=== PATIENT | female | born 1995 | race Caucasian/White ===

== ENCOUNTER 2019-06-19 16:24 | Observation (INO) ==
[2019-06-19 17:02] LABS: Microscopic, Urine URINE MICROSCOPIC (MICROSCOPIC)
[2019-06-19 17:07] LABS: Appearance,Urine SL CLOUDY (Clear); Bilirubin,Urine Negative (Negative); Blood, Urine Negative (Negative); Color,Urine DK YELLOW (Yellow); Glucose,Urine (UA) Negative (Negative); Ketones,Urine 2+ (Negative); Leukocyte Esterase,Urine 1+ (Negative); Protein,Urine Negative (Negative)
[2019-06-19 17:13] LABS: Amphetamine/Metha Screen,Urine Negative ng/mL (<1000); Barbiturates Screen,Urine Negative ng/mL (<200); Benzodiazepines Screen,Urine Negative ng/mL (<200); Cannabinoid Screen,Urine Negative ng/mL (<50); Cocaine Screen,Urine Negative ng/mL (<300); Methadone Screen,Urine Negative ng/mL (<300); Opiate Screen,Urine Negative ng/mL (<300); Phencyclidine Screen,Urine Negative ng/mL (<25)
[2019-06-19 17:19] LABS: Fetal Membrane Rupture (Rapid) Negative (Negative)
[2019-06-19 17:23] LABS: Bacteria,Urine Trace /lpf; Squamous Epithelial Cell,Urine 20-50 #/hpf (0-5); WBC,Urine 50-100 #/hpf (0-3)
[2019-06-19 18:18] LABS: Basophils % 0.2 % (0.1-2.0); Eosinophils # 0.1 K/mm3 (0.0-0.4); Eosinophils % 0.9 % (0.1-12.0); Hematocrit 28.6 % (37.0-47.0); Hemoglobin 9.1 g/dL (12.2-16.2); Lymphocytes # 0.8 K/mm3 (0.7-4.5); Lymphocytes % 8.7 % (10-50); Mean Corpuscular HGB Conc 31.8 g/dL (31.8-35.4); Mean Corpuscular Volume 82.6 fl (81-99); Mean Platelet Volume 9.2 fl (7.4-10.4); Monocytes # 0.7 K/mm3 (0.1-1.0); Monocytes % 7.7 % (1.7-9.3); Neutrophils # 7.7 K/mm3 (1.8-7.8); Neutrophils % 82.5 % (37.0-80.0); Platelet Count 168 K/mm3 (142-424); Red Blood Count 3.46 M/mm3 (4.20-5.40); Red Cell Distribution Width 15.3 % (11.5-17.5); White Blood Count 9.3 K/mm3 (4.8-10.8)
[2019-06-19 18:29] LABS: Albumin Level 2.1 gm/dL (3.4-5.0); Albumin/Globulin Ratio 0.6 (1.1-1.8); Anion Gap 11.7 mEq/L (5-15); Bilirubin,Total 0.3 mg/dL (0.2-1.0); Calcium 8.3 mg/dL (8.5-10.1); Globulin 3.7 gm/dl (1.3-3.2); Total Protein,Serum 5.8 gm/dL (6.4-8.2)
--- NOTE | 2019-06-20 09:39 | History & Physical Report ---
*Admission Date: 06/19/19 *Chief complaint: leakage of fluid *History of present illness: 23 yo @ 32 wks with care in [place] [facility] Presented on 06/19 with complaint of possible LOF Amnisure was negative with no evidence of ROM, but patient appeared ill and heart tracing showed some intermittent decelerations She was admitted for evaluation, IVF and prolonged monitoring During her evaluation, she tested positive for influenza B She denied any N/V/D or fever heart tracing responded appropriately to the IVF bolus [facility] History I have reviewed the patient's past medical history: Yes *Have you ever received a pneumonia vaccine?: No *Have you received a flu vaccine this season?: No Other Surgeries: No: - *Social History Educational Level: Completed High School Smoking Status: Never smoker Alcohol Intake: never *Occupational Status:: unemployed *Travel in the last 8 weeks: None Family Hx:: No significant family history : 2 Para: 1 Review of Systems - Review of Systems CONSTITUTIONAL: no fever/chills HEENT: no oral lesions PULMONARY: no shortness of breath or difficulty breathing CV: no racing heart, palpitations or chest pain ABD: no abdominal pain, N/V : questionable leakage of fluid SKIN: no new rash or skin lesions EXT: no edema NEURO: no mental status changes PSYCH: no current anxiety/depression Meds Home Medications Medication Instructions Recorded Confirmed Type No Known Home Medications 06/20/19 06/20/19 History Allergies Allergy/AdvReac Type Severity Reaction Status Date / Time No Known Allergies Allergy Unverified 05/08/17 14:09 Exam Vital signs and Labs for Last 24 Hours: Temp Pulse Resp BP Pulse Ox 98.5 F 103 H 18 114/58 L 95 06/20/19 07:00 06/20/19 07:00 06/20/19 07:00 06/20/19 07:00 06/20/19 07:00 Laboratory Results - last 24 hr 06/19/19 16:40: Urine Color Dk yellow, Urine Appearance Sl cloudy, Urine pH 7.0, Ur Specific [place] 1.020, Urine Protein Negative, Urine Glucose (UA) Negative, Urine Ketones 2+, Urine Blood Negative, Urine Nitrate Negative, Urine Bilirubin Negative, Urine Urobilinogen 1.0, Ur Leukocyte Esterase 1+ A, Urine RBC None, Urine WBC 50-100, Ur Squamous Epith Cells 20-50, Urine Bacteria Trace 06/19/19 16:40: Urine Opiates Screen Negative, Urine Methadone Screen Negative, Ur Barbituates Screen Negative, Ur Phencyclidine Scrn Negative, Ur Amphetamines Screen Negative, U Benzodiazepines Scrn Negative, Urine Cocaine Screen Negative, U Marijuana (THC) Screen Negative 06/19/19 16:50: Membrane Rupture Negative, Fibronectin Negative 06/19/19 18:05: Influenza Type A Ag Negative, Influenza Type B Ag Positive A 06/19/19 18:10: WBC 9.3, RBC 3.46 L, Hgb 9.1 L, Hct 28.6 L, MCV 82.6, MCH 26.3 L , MCHC 31.8, RDW 15.3, Plt Count 168, MPV 9.2, Neut % (Auto) 82.5 H, Lymph % (Auto) 8.7 L, [place] % (Auto) 7.7, Eos % (Auto) 0.9, Baso % (Auto) 0.2, Neut # (Auto) 7.7, Lymph # (Auto) 0.8, [place] # (Auto) 0.7, Eos # (Auto) 0.1, Baso # (Auto) 0.0 06/19/19 18:10: Sodium 136, Potassium 3.7, Chloride 104, Carbon Dioxide 24, Anion Gap 11.7, BUN 4 L, Creatinine 0.64, Estimated Creat Clear 169, Estimated GFR 116, Est GFR ( Amer) 140, Glucose 93, Calcium 8.3 L, Total Bilirubin 0.3, AST 20, ALT 16, Alkaline Phosphatase 114, Total Protein 5.8 L, Albumin 2.1 L, Globulin 3.7 H, Albumin/Globulin Ratio 0.6 L I & O for Last 24 hours: Intake & Output 06/17/19 06/18/19 06/19/19 06/20/19 11:59 11:59 11:59 11:59 Weight 171 lb Narrative: CONSTITUTIONAL: no acute distress PULMONARY: breathing unlabored without audible wheezes CV: no tachycardia or visible JVD; normal LE peripheral pulses ABD: soft, NT/ND, no guarding. Gravid uterus. : cervix closed, amnisure negative SKIN: no visible rash or lesions HEME: no lymphadenopathy EXT: no edema LEs NEURO: alert/oriented, no altered mental status PSYCH: appropriate mood and demeanor without visible anxiety/depression NST: Bas[place]: 130 Variability: minimal to moderate Accelerations: yes Decelerations: intermittent late decelerations Impression: Reactive, Category 2 Assessment and Plan (1) 32 weeks gestation of Current visit: Yes Status: Acute Category: Medical Code(s): Z3A.32 - 32 weeks gestation of (2) with care elsewhere Current visit: Yes Status: Acute Category: Medical Code(s): Z34.90 - Encounter for supervision of normal , unspecified, unspecified trimester (3) heart deceleration Current visit: Yes Status: Acute Category: Medical (4) Influenza B Current visit: Yes Status: Acute Category: Medical Code(s): J10.1 - Influenza due to other identified influenza virus with other respiratory manifestations (5) Anemia during Current visit: Yes Status: Acute Category: Medical Code(s): O99.019 - Anemia complicating , unspecified trimester - Assessment and plan all Dx Assessment and Plan for all problems:: Admitted for observation/monitoring Continue IV hydration with anti-emetics as needed Continuous monitoring until category 1 tracing, then twice daily NST Tamiflu started PNV with FeSO4 for anemia
--- NOTE | 2019-06-20 09:57 | Discharge Summary ---
General - General Admission date:: 06/19/19 Discharge date: 06/20/19 HPI HPI: 23 yo @ 32 wks with care in [facility] Presented on 06/19 with complaint of possible LOF Amnisure was negative with no evidence of ROM, but patient appeared ill and heart tracing showed some intermittent decelerations She was admitted for evaluation, IVF and prolonged monitoring During her evaluation, she tested positive for influenza B She denied any N/V/D or fever heart tracing responded appropriately to the IVF bolus and remained reassuring throughout the night She was started on Tamiflu Objective Vital signs: Temp Pulse Resp BP Pulse Ox 98.5 F 103 H 18 114/58 L 95 06/20/19 07:00 06/20/19 07:00 06/20/19 07:00 06/20/19 07:00 06/20/19 07:00 Narrative: CONSTITUTIONAL: no acute distress PULMONARY: breathing unlabored without audible wheezes CV: no tachycardia or visible JVD; normal LE peripheral pulses ABD: soft, NT/ND, no guarding : deferred SKIN: no visible rash or lesions EXT: no edema LEs NEURO: alert/oriented, no altered mental status PSYCH: appropriate mood and demeanor without anxiety/depression Results Labs on day of discharge: Labs from last 24 hours 06/19/19 06/19/19 06/19/19 18:10 18:10 18:05 WBC 9.3 RBC 3.46 L Hgb 9.1 L Hct 28.6 L MCV 82.6 MCH 26.3 L MCHC 31.8 RDW 15.3 Plt Count 168 MPV 9.2 Neut % (Auto) 82.5 H Lymph % (Auto) 8.7 L [place] % (Auto) 7.7 Eos % (Auto) 0.9 Baso % (Auto) 0.2 Neut # (Auto) 7.7 Lymph # (Auto) 0.8 [place] # (Auto) 0.7 Eos # (Auto) 0.1 Baso # (Auto) 0.0 Sodium 136 Potassium 3.7 Chloride 104 Carbon Dioxide 24 Anion Gap 11.7 BUN 4 L Creatinine 0.64 Estimated Creat Clear 169 Estimated GFR 116 Est GFR ( Amer) 140 Glucose 93 Calcium 8.3 L Total Bilirubin 0.3 AST 20 ALT 16 Alkaline Phosphatase 114 Total Protein 5.8 L Albumin 2.1 L Globulin 3.7 H Albumin/Globulin Ratio 0.6 L Urine Color Urine Appearance Urine pH Ur Specific [place] Urine Protein Urine Glucose (UA) Urine Ketones Urine Blood Urine Nitrate Urine Bilirubin Urine Urobilinogen Ur Leukocyte Esterase Urine RBC Urine WBC Ur Squamous Epith Cells Urine Bacteria Membrane Rupture Urine Opiates Screen Urine Methadone Screen Ur Barbituates Screen Ur Phencyclidine Scrn Ur Amphetamines Screen U Benzodiazepines Scrn Urine Cocaine Screen U Marijuana (THC) Screen Influenza Type A Ag Negative Influenza Type B Ag Positive A Fibronectin 06/19/19 06/19/19 06/19/19 16:50 16:40 16:40 WBC RBC Hgb Hct MCV MCH MCHC RDW Plt Count MPV Neut % (Auto) Lymph % (Auto) [place] % (Auto) Eos % (Auto) Baso % (Auto) Neut # (Auto) Lymph # (Auto) [place] # (Auto) Eos # (Auto) Baso # (Auto) Sodium Potassium Chloride Carbon Dioxide Anion Gap BUN Creatinine Estimated Creat Clear Estimated GFR Est GFR ( Amer) Glucose Calcium Total Bilirubin AST ALT Alkaline Phosphatase Total Protein Albumin Globulin Albumin/Globulin Ratio Urine Color Dk yellow Urine Appearance Sl cloudy Urine pH 7.0 Ur Specific [place] 1.020 Urine Protein Negative Urine Glucose (UA) Negative Urine Ketones 2+ Urine Blood Negative Urine Nitrate Negative Urine Bilirubin Negative Urine Urobilinogen 1.0 Ur Leukocyte Esterase 1+ A Urine RBC None Urine WBC 50-100 Ur Squamous Epith Cells 20-50 Urine Bacteria Trace Membrane Rupture Negative Urine Opiates Screen Negative Urine Methadone Screen Negative Ur Barbituates Screen Negative Ur Phencyclidine Scrn Negative Ur Amphetamines Screen Negative U Benzodiazepines Scrn Negative Urine Cocaine Screen Negative U Marijuana (THC) Screen Negative Influenza Type A Ag Influenza Type B Ag Fibronectin Negative DS: Diagnosis - Discharge Diagnosis (1) 32 weeks gestation of Status: Acute (2) with care elsewhere Status: Acute (3) heart deceleration Status: Acute (4) Influenza B Status: Acute (5) Anemia during Status: Acute Discharge Plan - Patient Discharge Instructions ACTIVITY: Continue current activity DIET: regular diet Additional Instructions: DRINK PLENTY OF FLUIDS TYLENOL FOR FEVER REST Patient Instructions: The Flu Shot and , Colds and Flus (Alternative Therapy), Hemorrhage, DI for Dehydration -- Adult, How to Do Kick Counts, Antepartum Care - Follow up Plan Unknown provider or service follow up:: 06/20/19 09:50 Follow up with primary ob physician at previously scheduled appointment 06/23/19 Disposition: Home, Self-Jail Medications: Home Medications Medication Instructions Recorded Confirmed Type Oseltamivir Phosphate [Tamiflu 75 mg PO BID 4 Days #8 cap 06/20/19 Rx 75mg Capsule] Prescriptions/Medication Reconciliation: New Acetaminophen [Acetaminophen 325mg tab] 650 mg PO Q4HP PRN tablet PRN Reason: FOR FEVER Oseltamivir Phosphate [Tamiflu 75mg Capsule] 75 mg PO BID 4 Days #8 cap - Problem Reconciliation Problems Reviewed?: Yes
== END 2019-06-20 10:25 | disposition home or self-care (01) ==
LOC: OB 16:24 → OBOUT 16:24 → OB 16:31
PROVIDERS: ADMIT Obstetrics & Gynecology; ATTEND Obstetrics & Gynecology
CPT/HCPCS: 36415; 59025; 80053; 80305; 81001; 82731; 84112; 85025; 87086; 87088; 87186; 87275; 87276; 96360; 96365; 96366; G0378; G0463